=== PATIENT | female | born 1955 | race Caucasian/White ===

== ENCOUNTER 2017-10-18 11:51 | Observation (INO) ==
[2017-10-18 13:25] LABS: Bilirubin,Urine Negative (Negative); Blood,Urine Negative (Negative); Clarity,Urine Turbid (Clear); Color,Urine Dark Yellow (Yellow); Glucose,Urine (UA) Normal (Normal); Ketones,Urine Negative (Negative); Leukocyte Esterase,Urine Negative (Negative); Nitrite,Urine Negative (Negative); Protein,Urine Trace mg/dL (Neg-Trace); Specific Gravity,Urine 1.028 (1.010-1.025); Urobilinogen,Urine Normal (Normal)
[2017-10-18 13:31] LABS: Bacteria,Urine Moderate per hpf (None-Few); Squamous Epithelial Cell,Urine Many per lpf (None-Few)
[2017-10-18 13:48] LABS: Granular Casts,Urine Few per lpf (None Seen); Hyaline Casts,Urine Few per lpf (None-Few); Mucus,Urine Few (Few); RBC,Urine 0-3 per hpf (0-3)
[2017-10-18 13:52] LABS: Basophils % 0.4 %; Eosinophils % 0.4 %; Hematocrit 39.7 % (35.3-44.9); Hemoglobin 12.7 g/dL (11.5-15.4); Immature Granulocytes % 1.6 % (0-4); Lymphocytes # 1.1 K/mcL (0.6-4.6); Lymphocytes % 10.9 %; Mean Corpuscular Hemoglobin 27.3 pg (28.0-33.3); Mean Corpuscular Volume 85.2 fL (83.0-100.0); Mean Platelet Volume 11.2 fL (9.4-12.4); Monocytes # 0.4 K/mcL (0.0-1.3); Monocytes % 4.1 %; Neutrophils # 8.1 K/mcL (1.6-8.9); Platelet Count 197 K/mcL (140-400); Red Blood Count 4.66 M/mcL (3.82-4.97); Red Cell Distribution Width 15.4 % (11.5-14.5); Segmented Neutrophils % 82.6 %
[2017-10-18 14:10] LABS: BUN/Creatinine Ratio 25 (6-26); Bilirubin,Direct 0.1 mg/dL (0.0-0.2); Bilirubin,Total 0.5 mg/dL (0.3-1.0); Blood Urea Nitrogen 14 mg/dL (8-23); Calcium 9.6 mg/dL (8.6-10.3); Carbon Dioxide 30 mEq/L (23-29); Chloride 103 mEq/L (98-107); Glucose 132 mg/dL (70-105); Osmolality,Calculated 290 (280-300); Potassium 3.8 mEq/L (3.5-5.1); Sodium 139 mEq/L (136-145); eGFR For African Americans > 60 (> 60); eGFR For Non-African Americans > 60 (> 60)
[2017-10-18 14:11] LABS: Alanine Aminotransferase 11 Units/L (7-52); Albumin 4.3 g/dL (3.5-5.7); Albumin/Globulin Ratio 1.5 (1.1-2.2); Alkaline Phosphatase 116 Units/L (34-104); Aspartate Amino Transferase 9 Units/L (13-39); Bilirubin,Indirect 0.4 mg/dL (0.0-1.2); Globulin 2.8 g/dL (2.4-3.5); Lipase 20 Units/L (11-82); Total Protein 7.1 g/dL (6.4-8.9)
[2017-10-18] MEDS ORDERED: *HR* LORazepam 2 MG/ML VIAL IVP ONE (14:21)
[2017-10-18] MEDS ORDERED: 0.9 % Sodium Chloride 1,000 ML IVC ONE (14:21)
[2017-10-18] MEDS ORDERED: Ondansetron 4 MG/2 ML VIAL IVP ONE (14:21)
--- NOTE | 2017-10-18 14:21 | Emergency Department Note ---
Disposition Clinical Impression: Gait abnormality, Dizziness Headache Qualifiers: Headache type: unspecified Headache chronicity pattern: acute headache Intractability: not intractable Qualified Code(s): R51 - Headache Disposition: Admitted As Inpatient Condition: Fair Time of Disposition: 18:01 Dizziness HPI - General Chief Complaint: ED Dizziness Stated Complaint: Vomiting,dizziness,GANT Time Seen by Provider: 10/18/17 14:10 Source: patient Limitations: no limitations Nursing Notes Reviewed: Yes Vital Signs Reviewed: Yes - History of Present Illness HPI Narrative: 62-year-old female presents complaining of dizziness, patient is been feeling like the room is spinning, lightheaded for the last few days. Patient had abrupt onset of a headache this morning when she woke up that she describes a 6 out of 10 feels like fullness, her whole head is painful. She is also having some gait abnormalities. Difficulty in regulating. Patient has a history of hypertension on enalapril. hctz stroke, no history of peripheral vertigo. Denies any fever or chills, hemoptysis hematemesis or hematochezia. Pt Subjective Complaint: dizziness, lightheadedness (Headache) Onset (ago): day(s) Timing: gradual onset Description: "room spinning" History of similar episodes: No History of trauma: No Severity: moderate Worsens with: movement, position - Related Data Home Medications Medication Instructions Recorded Confirmed Ascorbic Acid [Vitamin C] 500 mg PO DAILY 10/18/17 10/18/17 Aspirin Enteric Coated [Aspirin EC] 81 mg PO 3XW 10/18/17 10/18/17 Calcium/Magnesium/Zinc 1 each PO DAILY 10/18/17 10/18/17 [Gmfsuzm-Rfpdespcy-Eshh Tab] Cholecalciferol (D-3) [Vitamin D] 1,000 unit PO DAILY 10/18/17 10/18/17 Cyanocobalamin (Vitamin B-12) 500 mcg PO DAILY 10/18/17 10/18/17 [Vitamin B-12] Enalapril/Hydrochlorothiazide 1 each PO DAILY 10/18/17 10/18/17 [Vaseretic 10-25 mg Tablet] Glucosamine/MSM/Chondroitin A 2 each PO DAILY 10/18/17 10/18/17 [Glucosamine Chondroit MSM Tab] Omeprazole [PriLOSEC] 20 mg PO BID 10/18/17 10/18/17 Ubidecarenone [Co Q-10] 100 mg PO DAILY 10/18/17 10/18/17 Allergies Allergy/AdvReac Type Severity Reaction Status Date / Time Sulfa (Sulfonamide AdvReac Gastrointestinal Verified 10/18/17 11:55 Antibiotics) Upset All systems ED: reviewed and negative except as stated. Review of Systems: As Per HPI Constitutional: Reports: weakness. Denies: fever, chills Eyes: Denies: eye pain ENT ED: Denies: ear pain Cardiovascular: Denies: chest pain, paroxysmal nocturnal dyspnea Respiratory: Denies: cough, dyspnea Gastrointestinal: Denies: abdominal pain, nausea, hematemesis Genitourinary: Denies: urgency Musculoskeletal: Denies: back pain, neck pain Neurological: Denies: headache, paresthesias, abnormal gait, vertigo Psychiatric: Denies: anxiety, depression Endocrine: Denies: fatigue Past Medical History - Past Medical History Attestation: Yes The following information was validated with the patient. Source: patient Medical history: Reports: cancer, GERD, hypertension Surgical history: Reports: appendectomy, cancer surgery, orthopedic, other Psychiatric history: Reports: no psych history - Social History Smoking Status: Never smoker Smokeless Tobacco Status: No Alcohol use: Reports: rarely Drug use: Reports: none Physical Exam Constitutional: Obese middle-aged female in no acute distress appears uncomfortable and nauseated Eyes: PERRLA, sclera anicteric ENT & Mouth: MM dry Neck: normal inspection, neck is supple Resp: CTA bilaterally, no resp distress CV: RRR, no m/g/r GI: normal inspection, soft, no guarding or rigidity Neuro: A&O3, CNII-XII grossly intact, COLEMAN, Gait dysmetiria and HINTS exam negative for nystagmus, head impulse or test of skew (central lesion possible, Hixson hallpike negative, Heel to herrera and finger to nose symmetric Skin: on limited exam, skin intact with no rashes or lesions - General Limitations: no limitations General appearance: alert, in no apparent distress Course Course Narrative: [id number] female with acute onset dizziness, severe headache with fullness, gait difficulties, given her concerning symptoms and hence exam that was negative for peripheral lesion, we will get an MRI MRA of the head and neck, to evaluate for vertebral or posterior circulation stroke, patient will get lab work and be reassessed. Some meclizine added for vertigo - Reevaluation(s) Reevaluation #1: Patient signs and symptoms are still persisting, she still is a difficulties when she is ambulating in the ED she gets reproducible dizziness, concerned given her age and comorbidities, there is a 4 mm aneurysm a symptomatic on her MRA will be admitted to hemodynamically stable condition for evaluation of dizziness and possible neurological consult Time: 18:00 Vital Signs Temperature 97.4 F L 10/18/17 11:52 Pulse Rate 72 10/18/17 11:52 Respiratory Rate 20 10/18/17 11:52 Blood Pressure 150/90 10/18/17 11:52 O2 Sat by Pulse Oximetry 97 10/18/17 11:52 Temperature 97.8 F 10/18/17 22:52 Pulse Rate 74 10/18/17 22:52 Respiratory Rate 16 10/18/17 22:52 Blood Pressure 152/76 10/18/17 22:52 O2 Sat by Pulse Oximetry 95 10/18/17 22:52 Oxygen Delivery Oxygen Delivery Room Air Dizziness - Differential Diagnosis Likely: benign paroxysmal positional vertigo, orthostatic hypotension, vertebral basilar insufficiency - Medical Records Medical records reviewed: Yes I reviewed the patient's medical records. - Lab Data Lab results reviewed: Yes I reviewed the patient's lab results. Result diagrams: 10/18/17 13:40 10/18/17 13:40 Lab Results 10/18/17 10/18/17 10/18/17 Range/Units 13:13 13:40 13:40 WBC 9.8 (4.3-11.1) K/mcL RBC 4.66 (3.82-4.97) M/mcL Hgb 12.7 (11.5-15.4) g/dL Hct 39.7 (35.3-44.9) % MCV 85.2 (83.0-100.0) fL MCH 27.3 L (28.0-33.3) pg MCHC 32.0 (31.6-35.5) g/dL RDW 15.4 H (11.5-14.5) % Plt Count 197 (140-400) K/mcL MPV 11.2 (9.4-12.4) fL Immature Gran % 1.6 (0-4) % Seg Neutrophils % 82.6 % Lymphocytes % 10.9 % Monocytes % 4.1 % Eosinophils % 0.4 % Basophils % 0.4 % Neutrophils # 8.1 (1.6-8.9) K/mcL Lymphocytes # 1.1 (0.6-4.6) K/mcL Monocytes # 0.4 (0.0-1.3) K/mcL Eosinophils # 0.0 (0.0-0.6) K/mcL Basophils # 0.0 (0.0-0.2) K/mcL Sodium 139 (136-145) mEq/L Potassium 3.8 (3.5-5.1) mEq/L Chloride 103 (98-107) mEq/L Carbon Dioxide 30 H (23-29) mEq/L BUN 14 (8-23) mg/dL Creatinine 0.56 L (0.60-1.20) mg/dL Est GFR ( Amer) > 60 (> 60) Est GFR (Non-Af Amer) > 60 (> 60) BUN/Creatinine Ratio 25 (6-26) Glucose 132 H (70-105) mg/dL POC Glucose (58-89) Calculated Osmolality 290 (280-300) Calcium 9.6 (8.6-10.3) mg/dL Total Bilirubin 0.5 (0.3-1.0) mg/dL Direct Bilirubin 0.1 (0.0-0.2) mg/dL Indirect Bilirubin 0.4 (0.0-1.2) mg/dL AST 9 L (13-39) Units/L ALT 11 (7-52) Units/L Alkaline Phosphatase 116 H (34-104) Units/L Troponin I (< 0.04) ng/mL Serum Total Protein 7.1 (6.4-8.9) g/dL Albumin 4.3 (3.5-5.7) g/dL Globulin 2.8 (2.4-3.5) g/dL Albumin/Globulin Ratio 1.5 (1.1-2.2) Lipase 20 (11-82) Units/L Urine Color Dark Yellow (Yellow) Urine Clarity Turbid A (Clear) Urine pH 6.0 (5.0-8.0) pH Units Ur Specific [place] 1.028 H (1.010-1.025) Urine Protein Trace (Neg-Trace) mg/dL Urine Glucose (UA) Normal (Normal) mg/dL Urine Ketones Negative (Negative) mg/dL Urine Blood Negative (Negative) Urine Nitrite Negative (Negative) Urine Bilirubin Negative (Negative) Urine Urobilinogen Normal (Normal) mg/dL Ur Leukocyte Esterase Negative (Negative) Urine Microscopic RBC 0-3 (0-3) per hpf Urine Microscopic WBC 3-5 H (0-3) per hpf Ur Squamous Epith Cells Many H (None-Few) per lpf Urine Bacteria Moderate H (None-Few) per hpf Hyaline Casts Few (None-Few) per lpf Granular Casts Few H (None Seen) per lpf Urine Mucus Few (Few) Ur Culture Indicated? NO (NO) 10/18/17 10/18/17 Range/Units 13:40 14:41 WBC (4.3-11.1) K/mcL RBC (3.82-4.97) M/mcL Hgb (11.5-15.4) g/dL Hct (35.3-44.9) % MCV (83.0-100.0) fL MCH (28.0-33.3) pg MCHC (31.6-35.5) g/dL RDW (11.5-14.5) % Plt Count (140-400) K/mcL MPV (9.4-12.4) fL Immature Gran % (0-4) % Seg Neutrophils % % Lymphocytes % % Monocytes % % Eosinophils % % Basophils % % Neutrophils # (1.6-8.9) K/mcL Lymphocytes # (0.6-4.6) K/mcL Monocytes # (0.0-1.3) K/mcL Eosinophils # (0.0-0.6) K/mcL Basophils # (0.0-0.2) K/mcL Sodium (136-145) mEq/L Potassium (3.5-5.1) mEq/L Chloride (98-107) mEq/L Carbon Dioxide (23-29) mEq/L BUN (8-23) mg/dL Creatinine (0.60-1.20) mg/dL Est GFR ( Amer) (> 60) Est GFR (Non-Af Amer) (> 60) BUN/Creatinine Ratio (6-26) Glucose (70-105) mg/dL POC Glucose 139 H (58-89) Calculated Osmolality (280-300) Calcium (8.6-10.3) mg/dL Total Bilirubin (0.3-1.0) mg/dL Direct Bilirubin (0.0-0.2) mg/dL Indirect Bilirubin (0.0-1.2) mg/dL AST (13-39) Units/L ALT (7-52) Units/L Alkaline Phosphatase (34-104) Units/L Troponin I < 0.03 (< 0.04) ng/mL Serum Total Protein (6.4-8.9) g/dL Albumin (3.5-5.7) g/dL Globulin (2.4-3.5) g/dL Albumin/Globulin Ratio (1.1-2.2) Lipase (11-82) Units/L Urine Color (Yellow) Urine Clarity (Clear) Urine pH (5.0-8.0) pH Units Ur Specific [place] (1.010-1.025) Urine Protein (Neg-Trace) mg/dL Urine Glucose (UA) (Normal) mg/dL Urine Ketones (Negative) mg/dL Urine Blood (Negative) Urine Nitrite (Negative) Urine Bilirubin (Negative) Urine Urobilinogen (Normal) mg/dL Ur Leukocyte Esterase (Negative) Urine Microscopic RBC (0-3) per hpf Urine Microscopic WBC (0-3) per hpf Ur Squamous Epith Cells (None-Few) per lpf Urine Bacteria (None-Few) per hpf Hyaline Casts (None-Few) per lpf Granular Casts (None Seen) per lpf Urine Mucus (Few) Ur Culture Indicated? (NO) - Radiology Data Radiology results reviewed: Yes I reviewed the patient's radiology results. Brain MRI 10/18/17 14:21 IMPRESSION: Unremarkable exam D/ / Kevin Dale MD / Kevin Dale MD Interpreting Provider: Kevin Dale MD Chest X-Ray 10/18/17 14:21 IMPRESSION: No acute abnormality. D/ / 10/18/2017 14:54:20 Tl Uriostegui MD / [facility] Interpreting Provider: Tl Uriostegui MD Head MRA 10/18/17 14:44 IMPRESSION: No focal significant vascular narrowing in the neck. 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 No additional aneurysms are noted. No focal significant arterial narrowing is noted in the head. D/ / Milan Elaine / Milan Elaine Interpreting Provider: Milan Elaine Neck MRA 10/18/17 14:44 IMPRESSION: No focal significant vascular narrowing in the neck. 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 No additional aneurysms are noted. No focal significant arterial narrowing is noted in the head. D/ / Milan Elaine / Milan Elaine Interpreting Provider: Milan Elaine - EKG Data EKG attestation: Yes I reviewed and interpreted this EKG. EKG shows normal: sinus rhythm Rate: normal (64 QRS 145 QTC [address] segment elevations or depressions new right bundle-branch blocks not seen on previous EKG in December 2015) Attestation Statement - Attestation Attestation: I examined this patient and my medical decision-making was reviewed with the Resident Physician, Dr. Canas. I agree with the documented findings, disposition and treatment plan as described except to the extent set forth below. Pt 62 yo wf, with c/o room spinning dizziness, worse with positional changes and head turning, for past few days, assocd with transient gen GANT earlier today , and difficulty ambualting due to sxs. Pt deneis any other assocd sxs. Speech clear, GCS=15 and no focal deficits. No GANT currently, and no N/V. No prior hx of dizziness. I agree with PE findings as documented. VSS. Pt underwent EKG, labs, CT imaging all wnl. Pt had MRI/A head/neck, shows 4 mm aneurysm, without ICH/edema or other abnormality. Will admit to hosp, with neuro consult. Neuro exam stable over time.
[2017-10-18 22:57] VITALS: BP 152/76
--- NOTE | 2017-10-18 23:31 | Internal Med History&Physical ---
Date of Encounter: 10/18/17 Time of Encounter: 23:28 Assessment and Plan (1) Anterior communicating artery aneurysm Current visit: Yes Status: Acute 4 mm with symptoms of headache and dizziness. Called Neurologist bus matron Dr. Gardner. Patient should be transferred for possible intervention given her 3 days of symptoms. (2) Dizziness Current visit: Yes Status: Acute Plan as above. (3) Headache Current visit: Yes Status: Acute Qualifiers: Headache type: unspecified Headache chronicity pattern: acute headache Intractability: not intractable Qualified Code(s): R51 - Headache (4) Hypertension Current visit: Yes Status: Acute Currently SBP ranges 130-150s and HR in normal limits. Will continue home medications. Cardiac diet until transfer. Qualifiers: Hypertension type: essential hypertension Qualified Code(s): I10 - Essential (primary) hypertension (5) Gait abnormality Current visit: Yes Status: Acute Internal Medicine - H&P: HPI Chief complaint: Vertigo, Headache Plans for Post Hospital Care: Transfer Other History of present illness: 62-year-old female with history of hypertension presents complaining of dizziness, headache, and being unsteady on her feet for past 3 days. Feels as though room is spinning despite being at rest. Headache is generalized in posterior region, 6/10 in severity. She denies any loss of conciousness, trauma , tiniitus, change in hearing, change in vision, focal weakness. Has not tried any medications for this. CBC and BMP in ED were unremarkable. An MRI Head/ MRA done showed normal carotid arteries but anterior communicating artery with a 4 mm aneurysm. Patient given meclizine in ED and stated this helped symptoms. Past Med Surg Social Fam HX - Past Medical History Medical history: cancer, GERD, hypertension Psychiatric history: no psych history - Past Surgical History Surgical History: appendectomy, cancer surgery, cholecystectomy, orthopedic, other - Social History Smoking Status: Never smoker Smokeless Tobacco Status: No Alcohol use: rarely Drug use: none - Family History Mother Living Status: Still Living Hx Family Cancer: Yes (skin) Hx Family Endocrine Disorder: Yes (dm) Father Living Status: Still Living Hx Family Cardiac Disorders: Yes (triple bypass) Hx Family Cancer: Yes (skin) Hx Family Endocrine Disorder: Yes (dm) Internal Medicine - H&P: Meds Ascorbic Acid [Vitamin C] 500 mg PO DAILY 10/18/17 [History] Aspirin Enteric Coated [Aspirin EC] 81 mg PO 3XW 10/18/17 [History] Calcium/Magnesium/Zinc [Lxbtojv-Kuabfmwyo-Zpab Tab] 1 each PO DAILY 10/18/17 [ History] Cholecalciferol (D-3) [Vitamin D] 1,000 unit PO DAILY 10/18/17 [History] Cyanocobalamin (Vitamin B-12) [Vitamin B-12] 500 mcg PO DAILY 10/18/17 [History] Enalapril/Hydrochlorothiazide [Vaseretic 10-25 mg Tablet] 1 each PO DAILY [History] Glucosamine/MSM/Chondroitin A [Glucosamine Chondroit MSM Tab] 2 each PO DAILY [History] Omeprazole [PriLOSEC] 20 mg PO BID 10/18/17 [History] Ubidecarenone [Co Q-10] 100 mg PO DAILY 10/18/17 [History] 3 Allergy/AdvReac Type Severity Reaction Status Date / Time Sulfa (Sulfonamide AdvReac Gastrointestinal Verified 10/18/17 11:55 Antibiotics) Upset All Systems PM: A 10-system review of systems was performed and is negative for pertinent findings except as documented above in the HPI. - Constitutional Constitutional: no chills, no fever(s), no night sweats - EENT Eyes: no blurry vision, no change in vision, no diplopia Ears: no decreased hearing, no tinnitus Nose, mouth and throat: no lip swelling, no neck mass, no sinus pain, no sinus pressure, no throat swelling - Cardiovascular Cardiovascular ROS IM: no chest pain, no diaphoresis, no dyspnea, no lightheadedness, no palpitations, no syncope - Respiratory Respiratory: no cough, no dyspnea, no wheezing, no excessive phlegm production - Gastrointestinal Gastrointestinal: no abdominal pain, no diarrhea, no hematemesis, no hematochezia, no melena, no nausea, no vomiting - Musculoskeletal Musculoskeletal ROS IM: muscle weakness, no arthralgias - Integumentary Integumentary IM: no rash, no unusual bruising - Neurological Neurological ROS: abnormal gait, dizziness, headache(s), vertigo, no abnormal hearing, no abnormal movements, no abnormal speech, no behavioral changes, no burning sensations, no confusion, no convulsions, no focal weakness, no loss of vision, no memory loss, no numbness, no paresthesias, no restless legs, no tingling - Constitutional Vitals: Temp Pulse Resp BP Pulse Ox 97.8 F 74 16 152/76 95 10/18/17 22:52 10/18/17 22:52 10/18/17 22:52 10/18/17 22:52 10/18/17 22:52 General appearance: Present: A&O X 3, morbidly obese, pleasant, no acute distress - Head Head exam: Present: atraumatic, normocephalic - Eye Eye exam: Present: PERRL, conjuntiva pink, sclera anicteric Pupils: Present: PERRL - Neck Neck exam general surgery: Present: supple, trachea midline. Absent: lymphadenopathy - Respiratory Respiratory exam: Present: CTAB. Absent: accessory muscle use, rales, rhonchi, wheezes - Cardiovascular Cardiovascular exam: Present: RRR, +S1, +S2. Absent: diastolic murmur, gallop, rubs, systolic murmur - Extremities Exam Extremities exam: Present: warm, radial pulses palpable and symmetrical. Absent : calf tenderness, cyanotic, pedal edema - Neurological Exam Neurological exam: Present: CN II-XII intact, oriented X3, no focal deficits. Absent: pronater drift, facial droop, speech deficit - Skin Skin exam: Present: dry, intact Internal Med - H&P Results - Labs CBC & Chem 7: 10/18/17 13:40 10/18/17 13:40
[2017-10-18] MEDS ORDERED: Naloxone 0.4 MG/ML INJ IVP PRN (23:41)
--- NOTE | 2017-10-19 19:06 | Electrocardiograph Report ---
[place] [id number] Test Date: 2017-10-18 Pat Name: Radha Vincent Department: 104 Room: 3B14 Gender: F Ring Sorter: : 1955 Requested By: Curt Canas Order Number: [id number] Reading MD: Pedro Pablo Paris DO Measurements Intervals [place] Rate: 64 P: 64 DC: 175 QRS: -11 QRSD: 145 T: 13 QT: 417 QTc: 426 Interpretive Statements SINUS RHYTHM RIGHT BUNDLE BRANCH BLOCK MODERATE VOLTAGE CRITERIA FOR LVH, CONSIDER NORMAL VARIANT NONSPECIFIC ST-T CHANGES Electronically Signed On 10-19-2017 19:05:20 EST by Pedro Pablo Paris DO
--- NOTE | 2017-10-24 19:22 | Transfer Summary ---
Date of Encounter: 10/20/17 Time of Encounter: 18:00 Transfer Discharge Sum: Diag - Discharge Diagnosis (1) Anterior communicating artery aneurysm Status: Acute (2) Dizziness Status: Acute (3) Headache Status: Acute (4) Hypertension Status: Acute (5) Gait abnormality Status: Acute Transfer Discharge Sum: Med - Medications Active and Home Medications: Home Medications Ascorbic Acid [Vitamin C] 500 mg PO DAILY 10/18/17 [History Confirmed 10/18/17] Aspirin Enteric Coated [Aspirin EC] 81 mg PO 3XW 10/18/17 [History Confirmed ] Calcium/Magnesium/Zinc [Ydknbqo-Zsvrqjcds-Qplv Tab] 1 each PO DAILY 10/18/17 [ History Confirmed 10/18/17] Cholecalciferol (D-3) [Vitamin D] 1,000 unit PO DAILY 10/18/17 [History Confirmed 10/18/17] Cyanocobalamin (Vitamin B-12) [Vitamin B-12] 500 mcg PO DAILY 10/18/17 [History Confirmed 10/18/17] Enalapril/Hydrochlorothiazide [Vaseretic 10-25 mg Tablet] 1 each PO DAILY [History Confirmed 10/18/17] Glucosamine/MSM/Chondroitin A [Glucosamine Chondroit MSM Tab] 2 each PO DAILY [History Confirmed 10/18/17] Omeprazole [PriLOSEC] 20 mg PO BID 10/18/17 [History Confirmed 10/18/17] Ubidecarenone [Co Q-10] 100 mg PO DAILY 10/18/17 [History Confirmed 10/18/17] Transfer Discharge Sum: Data Procedures and tests throughout hospitalization: Pending Orders 10/18/17 23:41 Peripheral IV [RC] CONT Placement to Observation Routine Vital Signs Assessment [RC] QSHIFT Resuscitation Status: Active [RES] Routine Transfer Discharge Sum: Prov Date of admission: 10/18/17 17:28 Primary care physician: Altagracia Torres Attending physician on discharge: Thony Villanueva Transfer Discharge Sum: A/P - Plan Overall status at transfer: patient is not back to baseline Disposition: Transfer Short-Term Hosp Transfer Discharge Sum: Hosp Hospital course: 62-year-old female with history of hypertension presents complaining of dizziness, headache, and being unsteady on her feet for past 3 days. Feels as though room is spinning despite being at rest. Headache is generalized in posterior region, 6/10 in severity. She denies any loss of conciousness, trauma , tiniitus, change in hearing, change in vision, focal weakness. Has not tried any medications for this. CBC and BMP in ED were unremarkable. An MRI Head/ MRA done showed normal carotid arteries but anterior communicating artery with a 4 mm aneurysm. Patient given meclizine in ED and stated this helped symptoms. I called the on-call Neurologist in regards to these MRI findings. It was advised that patient be transferred for possible intervention, as aneurysm may be the cause of patient's symptoms. - Time Spent with Patient Total time spent providing and/or coordinating transfer services: 35 minutes Transfer Discharge Sum: Exam - Constitutional Additional comments: - Constitutional Constitutional: no chills, no fever(s), no night sweats - EENT Eyes: no blurry vision, no change in vision, no diplopia Ears: no decreased hearing, no tinnitus Nose, mouth and throat: no lip swelling, no neck mass, no sinus pain, no sinus pressure, no throat swelling - Cardiovascular Cardiovascular ROS IM: no chest pain, no diaphoresis, no dyspnea, no lightheadedness, no palpitations, no syncope - Respiratory Respiratory: no cough, no dyspnea, no wheezing, no excessive phlegm production - Gastrointestinal Gastrointestinal: no abdominal pain, no diarrhea, no hematemesis, no hematochezia, no melena, no nausea, no vomiting - Musculoskeletal Musculoskeletal ROS IM: muscle weakness, no arthralgias - Integumentary Integumentary IM: no rash, no unusual bruising - Neurological Neurological ROS: abnormal gait, dizziness, headache(s), vertigo, no abnormal hearing, no abnormal movements, no abnormal speech, no behavioral changes, no burning sensations, no confusion, no convulsions, no focal weakness, no loss of vision, no memory loss, no numbness, no paresthesias, no restless legs, no tingling
== END 2017-10-19 02:05 | disposition short-term general hospital (02) ==
LOC: EMEROO 11:51 → 3BNU 11:51
PROVIDERS: ADMIT Internal Medicine; ATTEND Registered Nurse